=== PATIENT | female | born 1985 | race Caucasian/White ===

== ENCOUNTER 2024-12-19 21:38 | Inpatient (IN) | payer BC, SELFPAY ==
[2024-12-19 14:05] VITALS: BP 175/106
--- NOTE | 2024-12-19 14:41 | ED TECH ---
unable to draw labs in triage. stuck 2x.
--- NOTE | 2024-12-19 15:27 | ED.GENMED ---
History of Present Illness
General
Chief Complaint: Oral/Mouth Problem
Source: patient
Exam Limitations: none
Time Seen by Provider: 12/19/24 15:15
History of Present Illness
History of Present Illness:
See MDM
Past History
Past History
ED Past Medical History: None
ED Past Surgical History: Other (Root canal)
Phy Exam
Physical Exam
Physical Exam:
See MDM
Course
Orders/Labs/Results
Orders:
Orders
12/19/24 14:10
Test Result ONCE
12/19/24 15:25
CT Neck With Iv Contrast Urgent
Comment:
Reason For Exam: R facial and neck abscess
LevoFLOXacin 500 MG/100 ML [Levaquin] 500 mg in 100 ml IV NOW
Morphine Sulfate 4 mg IV NOW STA
12/19/24 15:28
Ketorolac [Toradol] 30 mg IV NOW STA
12/19/24 15:37
Complete Blood Count/With Diff Urgent
12/19/24 15:38
Wound Culture [Wound/Abscess/Other Culture] Urgent
JIHAN Source: Face
Specimen Description: Right
Date Specimen was Collected: 12/19/24
Time Specimen was Collected: 15:32
12/19/24 15:51
Lactic Acid Urgent
12/19/24 16:29
Comprehensive Metabolic Panel Urgent
Comment: HCG
HCG, Serum Qualitative Screen Urgent
12/19/24 16:39
Ondansetron Injectable [Zofran] 4 mg IV NOW STA
Abnormal Lab Results
12/19/24 12/19/24
15:37 16:29
WBC 14.7 H 10^3/uL
(4.8-10.8)
Abs Immat Gran (auto) 0.1 H 10^3/uL
(0-0.05)
Absolute Neuts (auto) 11.6 H 10^3/uL
(1.4-6.5)
Absolute Monos (auto) 1.1 H 10^3/uL
(0.1-0.6)
Neutrophils % 79.4 H %
(42.2-75.2)
Lymphocytes % 10.8 L %
(20.5-51.1)
BUN 2 L mg/dl
(7-17)
Creatinine 0.5 L mg/dL
(0.6-1.0)
Glucose 118 H mg/dl
(70-99)
Total Bilirubin 1.4 H mg/dl
(0.2-1.3)
AST 42 H U/L
(14-36)
ALT 46 H U/L
(0-35)
12/19/24 15:37
12/19/24 16:29
Vital Signs
Initial and Last Documented VS:
Initial Vital Signs
Temp Pulse Resp BP Pulse Ox
99.5 F 88 16 175/106 99
12/19/24 14:05 12/19/24 14:05 12/19/24 14:05 12/19/24 14:05 12/19/24 14:05
Last Documented Vital Signs
Temp Pulse Resp BP Pulse Ox
99.5 F 97 20 172/80 99
12/19/24 14:05 12/19/24 19:07 12/19/24 19:07 12/19/24 19:07 12/19/24 19:07
Procedures
Incision/Drainage/Joint Aspiration
Right Anterior Lateral Cheek:
Preparation: cleaned with alcohol wipe
Type of procedure: drain (with 18G needle)
Nature of site: abscess
Description of abscess: greater than 3cm
Loculations broken up: No
How much fluid was obtained?: small amount
Fluid description: purulent
Treatment: left open for drainage
MDM/Problems Addressed
Differential Diagnosis Includes:
HPI and MDM Narrative:
39-year-old female presenting with right facial swelling and redness. Patient states she feels like it is going to her throat and she is having trouble swallowing. She had a right lower root canal several years ago. Because it was in the same
area, she assumed it was related to the root canal. She saw her dentist and was placed on clindamycin. She followed up today and they were thinking about draining it but she was sent in for evaluation given the throat involvement. Patient does
feel double. There is cellulitic changes with abscess to the right lateral cheek. It is coming to ahead. Because of this, an 18-gauge needle was placed in the area to decompress. Purulent discharge was removed. It was sent for culture. Patient
started on IV clindamycin. Will obtain CT of
Physical exam
General: Mildly uncomfortable
HEENT: protecting airway
Neck: Swelling and erythema to right anterior lower jaw that comes to ahead
CV: No evidence of cyanosis
Resp: No accessory muscle use
Abd: Non-distended
Extremities: No deformities
Neuro: alert
Psych: Normal affect
Skin: Intact
Problems Addressed including Acute and Chronic Conditions affecting care:
1. Right facial abscess
Acuity: acute
Prognosis: unstable
Details: Medial incision was performed to decompress the area. Patient did feel better. Will start IV antibiotics and obtain CT
Updates
On multiple reassessments, patient feeling much better. CT confirms what appears to be a small abscess. It was likely larger but it was drained for patient's comfort prior to CT. Given swelling near the airway and her discomfort, will continue IV
antibiotics and
Differential Diagnosis (but not limited to): Dental abscess, facial abscess
Testing considered: Blood cultures
Drug therapy (if applicable): OTC meds, please see d/c instruction regarding Rx drugs
Amount and/or Complexity of Data Reviewed
Clinical info obtained from: Patient
External data reviewed: N/A
Labs I independently reviewed (but not limited to): Leukocytosis
Radiology: The CT scan was personally and independently reviewed. In addition, official CT report reviewed.
Pulse Ox: not hypoxic
EKG independently reviewed: N/A
Hoisting Engineer: N/A
Critical Care: N/A
Risk of Complication:
Social Determinants of health: Good social support
Discussed with other providers: Hospitalist
Escalation of Care includes Admit/Obs: Given the cellulitis and abscess failing outpatient antibiotics, will admit for IV antibiotics
Occasional wrong word or 'sound a like' substitutions may have occurred due to the inherent limitations of voice recognition software. Read the chart carefully and recognize, using context, where substitutions have occurred.
*Critical Care Note
Total Time (30-74mins, 75-104mins- exclusive of procedures): Not Applicable
ED Attending Note
-
Portions of this chart may have been created with voice recognition software.� Occasional wrong word or��sound alike� substitutions may have occurred due to the inherent limitations of voice recognition software.
Discharge Plan
Departure
Patient Disposition: Admit
Date of Disposition: 12/19/24
Time of Disposition: 20:01
Admit to: Med/Surg
Presentation/result/management discussed w/ accepting MD/DO: Hospitalist
Discharge Problem:
Abscess of face
Prescriptions:
No Action
clindamycin HCl 300 mg Capsule
300 mg PO TID
cetirizine 10 mg Tablet
10 mg PO DAILY
zinc sulfate 50 mg zinc (220 mg) Tablet
50 mg PO HS
famotidine 20 mg Tablet
20 mg PO DAILY
ascorbic acid (vitamin C) [Vitamin C] 500 mg Tablet
500 mg PO HS
ibuprofen [Advil] 200 mg Tablet
600 mg PO Q6HPRN PRN (Reason: mild pain/fever)
duloxetine 60 mg Capsule,Delayed Release(Dr/Ec)
60 mg PO DAILY
cholecalciferol (vitamin D3) [Vitamin D3] 25 mcg (1,000 unit) Tablet
25 mcg PO HS
Visbiome 112.5 billion cell Capsule
1 cap PO HS
Fiber Gummies 2 gram Tablet,Chewable
4 g PO HS
magnesium oxide 400 mg magnesium Tablet
400 mg PO HS
Referrals:
Aicha Guzman DO [Family Provider] -
Interventions
Interventions:
*Risk Screen - Suicide Last Done: 12/19/24 14:05
*General Assessment Last Done: 12/19/24 15:02
*Neglect/Abuse Screening Last Done: 12/19/24 14:05
Discharge Date and Time
Print Language: SAMI
[2024-12-19] MEDS: LEVAQUIN 100 IV (15:36)
[2024-12-19] MEDS: TORADOL 30 MG IV (15:36)
[2024-12-19] MEDS: MORPHINE SULFATE 4 MG IV ×2 (15:37→20:35)
[2024-12-19 16:11] LABS: % Basophils 0.5 % (0-2); % Eosinophils 1.4 % (0-6); % Immature Granulocytes 0.3 % (0-0.5); % Lymphocytes 10.8 % (20.5-51.1); % Monocytes 7.6 % (1.7-9.3); % Neutrophils 79.4 % (42.2-75.2); Absolute Basophils 0.1 10^3/uL (0-0.2); Absolute Eosinophils 0.2 10^3/uL (0-0.7); Absolute Immature Granulocytes 0.1 10^3/uL (0-0.05); Absolute Lymphocytes 1.6 10^3/uL (1.2-3.4); Absolute Monocytes 1.1 10^3/uL (0.1-0.6); Absolute Neutrophils 11.6 10^3/uL (1.4-6.5); Hematocrit 38.6 % (37.0-47.0); Hemoglobin 13.1 g/dL (12.0-16.0); Mean Corp Hgb Conc. 33.9 g/dL (33.0-37.0); Mean Corpuscular Hgb 30.6 pg (27.0-31.0); Mean Corpuscular Volume 90.2 fL (81.0-99.0); Nucleated Red Blood Cells % 0 %; Red Blood Cell Count 4.28 10^6/uL (4.20-5.40); Red Cell Dist. Width 13.1 % (11.5-14.5); White Blood Cell Count 14.7 10^3/uL (4.8-10.8)
[2024-12-19 16:19] LABS: Lactic Acid 1.1 mmol/L (0.7-2.0)
[2024-12-19] MEDS: ZOFRAN 4 MG IV (16:49)
[2024-12-19 17:16] LABS: ALT (SGPT) 46 U/L (0-35); AST (SGOT) 42 U/L (14-36); Albumin 3.8 g/dl (3.5-5.0); Alkaline Phosphatase 85 U/L (38-126); Blood Urea Nitrogen 2 mg/dl (7-17); Calcium 9.3 mg/dl (8.4-10.2); Carbon Dioxide 23 mmol/L (22-30); Chloride 105 mmol/L (98-107); Glucose 118 mg/dl (70-99); Potassium 4.6 mmol/L (3.5-5.1); Sodium 137 mmol/L (135-145); Total Bilirubin 1.4 mg/dl (0.2-1.3); Total Protein 6.9 g/dl (6.3-8.2); eGFR > 60.00
[2024-12-19 17:17] LABS: HCG, Serum Qualitative Screen Negative
[2024-12-19 19:07] VITALS: BP 172/80
--- NOTE | 2024-12-19 20:39 | HPS.HSE ---
Family Physician
-
Family Physician: Aicha Guzman
Chief Complaint
-
facial abscess
History of Present Illness
Patient is a 39-year-old female with past medical history significant for seasonal allergies, anxiety and GERD who presented to [facility] ED for evaluation of facial abscess. Patient states she went to dentist on Sunday to get dental work
completed and they were unable related to a abscess on the lower right side of her mouth. They sent her home with a script for Clindamycin TID for 7 days, she has taken medication as prescribed. She notes increased size and pain around Sunday and
called. Dentist instructed her to continue antibiotic and it will improve. The abscess continued to grow and now able to visualize externally radiating down neck, she returned to dentist today who immediately referred her to the ED for evaluation
and treatment. She reports difficulty swallowing with increased swelling and discomfort. Patient denies any fever, chills, cough, shortness of breath, nausea or vomiting.
Medical History
Past Medical History
Past Medical History: Reports Other
Additional Past Medical History:
seasonal allergies
anxiety
GERD
Past Surgical History: Reports Other
Additional Past Surgical History:
Left knee scope partial medial meniscectomy and excision of medial plica (DOS 03/13/2019)
2 c-sections
Social History
Tobacco: Non-smoker
Alcohol: Occasional
Drug: Marijuana (occasionally will smoke marijuana )
Personal:
Living: With Family
Employment: Employed
Family History
Family History: Not pertinent
Allergies / Home Medications
Allergies reflects when Allergies were last updated in [employer].
Home Medications with original date entered in [employer]
Allergy/Medication List:
Allergies
Allergy/AdvReac Type Severity Reaction Status Date / Time
coconut Allergy Rash Verified 12/19/24 14:05
dairy Allergy upset Uncoded 12/19/24 14:05
stomach
Home Medications
Lactobac no.2-Bifidobac no.1-S. thermo 112.5 billion cell capsule (Visbiome) 1 cap PO HS 12/19/24
ascorbic acid (vitamin C) 500 mg tablet (Vitamin C) 500 mg PO HS 12/19/24
cetirizine 10 mg tablet 10 mg PO DAILY 12/19/24
cholecalciferol (vitamin D3) 25 mcg (1,000 unit) tablet (Vitamin D3) 25 mcg PO HS 12/19/24
clindamycin HCl 300 mg capsule 300 mg PO TID 12/19/24
duloxetine 60 mg capsule,delayed release 60 mg PO DAILY 12/19/24
famotidine 20 mg tablet 20 mg PO DAILY 12/19/24
ibuprofen 200 mg tablet (Advil) 600 mg PO Q6HPRN PRN mild pain/fever 12/19/24
inulin 2 gram chewable tablet 4 g PO HS 12/19/24
magnesium oxide 400 mg PO HS 12/19/24
zinc sulfate 50 mg zinc (220 mg) tablet 50 mg PO HS 12/19/24
Review of Systems
-
History Source: Patient
EENT: Reports Mouth Pain (left lower abscess with edema and discomfort )
Physical Exam
Vital Signs
Vital Signs
Temp Pulse Resp BP Pulse Ox
99.5 F 97 20 172/80 99
12/19/24 14:05 12/19/24 19:07 12/19/24 19:07 12/19/24 19:07 12/19/24 19:07
Physical Exam
General: Well Developed, Well Nourished, No Apparent Distress, Conversant and Morbidly Obese
HEENT: NormoCephalic, Moist mucous membranes, Atraumatic, [place] Conjunctivae, Nose Appears Normal, Ears Appear Normal and Other (Swelling and erythema to right anterior lower jaw )
Respiratory: Clear and Non Labored Respirations
Cardiac: S1/S2 and Regular Rhythm
Breast: Deferred by me
GI: Soft, Non Tender, Non Distended and Normal Bowel Sounds; No Organomegaly
Rectal: Deferred by Provider
Genito-urinary: Deferred by me
Musculoskeletal: No Clubbing, No Cyanosis and No Edema
Skin: No Rash
Neuro: Awake, Alert, AO x 3 and Nonfocal/grossly intact
Psych: Calm and Intact Judgment/Insight
Laboratory Results
-
12/19/24 15:37
12/19/24 16:29
Laboratory Results
Lactic Acid Cancelled 12/19/24 18:15
Total Bilirubin 1.4 mg/dl (0.2-1.3) H 12/19/24 16:29
AST 42 U/L (14-36) H 12/19/24 16:29
ALT 46 U/L (0-35) H 12/19/24 16:29
Alkaline Phosphatase 85 U/L (38-126) 12/19/24 16:29
Data Reviewed
-
CT Scan: Report Reviewed by me (Neck: Findings suggesting a small abscess in the subcutaneous tissues about the right jaw as described above. Associated mild surrounding inflammation and cellulitis as described above. Mild right cervical and
submental lymphadenopathy. Minimal nonacute sinusitis. Mild reversal of the normal cerv)
Lab Data: Labs Reviewed by me (WBC 14.7, neut 79.4)
Impression/Plan
-
IMPRESSION/PLAN:
#facial abscess
WBC 14.7, Neut 79.[address]: Findings suggesting a small abscess in the subcutaneous tissues about the right jaw as described above. Associated mild surrounding inflammation and cellulitis as described above.
Mild right cervical and submental lymphadenopathy.
Minimal nonacute sinusitis.
Mild reversal of the normal cervical spinal lordosis. This can be seen with muscular spasm.
- Admit to med/surg
- IV Unasyn
- Consult oral/maxillofacial surgery
- IVF
- supportive care
#seasonal allergies
- continue cetirizine
#anxiety
- continue Cymbalta
#GERD
- continue famotidine
Code status: full code
DVT prophylaxis: Lovenox Sq
--- NOTE | 2024-12-19 21:10 | W.PN.UPDATE ---
Update Note
Progress Note Update
This note serves as an addendum to the H&P by ground control approach technician LAURA Lena Man
HPI
39 HX Anxiety, seasonal allergy serge t ER
- pw right facial swelling and redness with radiation into throat
- trouble swallowing.
- s/p right lower root canal several years ago. it was in the same area, she assumed it was related to the root canal.
- Dentist prescribed current clindamycin D4/5
- Upon f/u with Dentist today , she was sent to ER for evaluation given the throat involvement.
Vital Signs
Temp Pulse Resp BP Pulse Ox
99.5 F 97 20 172/80 99
12/19/24 14:05 12/19/24 19:07 12/19/24 19:07 12/19/24 19:07 12/19/24 19:07
PE
Gen:uncomfortable
HEENT and neck: Swelling and erythema to right anterior lower jaw
Lungs:CTA
Cor: RRR S1 S2
Abdomen: benign exam
RESIN MAKER: AAO3, NFND
MS:no edema
Psych:approiate
Abnormal Lab
12/19/24 12/19/24
15:37 16:29
WBC 14.7 H
Abs Immat Gran (auto) 0.1 H
Absolute Neuts (auto) 11.6 H
Absolute Monos (auto) 1.1 H
Neutrophils % 79.4 H
Lymphocytes % 10.8 L
BUN 2 L
Creatinine 0.5 L
Glucose 118 H
Total Bilirubin 1.4 H
AST 42 H
ALT [address] With Iv Contrast
- small abscess in the subcutaneous tissues about the right jaw as described above.
- associated mild surrounding inflammation and cellulitis as described above.
- Mild right cervical and submental lymphadenopathy.
- Minimal nonacute sinusitis.
- Mild reversal of the normal cervical spinal lordosis. This can be seen with muscular spasm.
ASSESSMENT & PLAN
Small subcutaneous abscess at Rt mandibular area of the face suspect underling dental infection
- associated mild surrounding inflammation and cellulitis
- Mild right cervical and submental LAD
- Empiric IV Unasyn in place of IV LVQ
- IV NS
- PRN Toradol analgesia
- OMFS consult
HX depression
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
DVT Px: LMWH
Full code
IP MS
[2024-12-19 22:18] VITALS: BMI 45.6
--- NOTE | 2024-12-19 23:00 | PTCARENOTE ---
Pt. admitted from E.D., AAO x 3, vs stable, right jaw +2 edema, red, call lacey within reach.
[2024-12-19] MEDS: NSS 1000 IV (23:03)
[2024-12-19 23:11] VITALS: BP 116/64
[2024-12-20] MEDS: UNASYN IV ×4 (00:03→16:14)
[2024-12-20 07:02] LABS: Blood Urea Nitrogen 4 mg/dl (7-17); Calcium 8.8 mg/dl (8.4-10.2); Carbon Dioxide 26 mmol/L (22-30); Chloride 107 mmol/L (98-107); Estimated Creatinine Clearance > 125 ml/min; Glucose 109 mg/dl (70-99); Potassium 4.1 mmol/L (3.5-5.1); Sodium 140 mmol/L (135-145); eGFR > 60.00
[2024-12-20 07:30] VITALS: BP 136/81
[2024-12-20 08:08] LABS: Hematocrit 34.7 % (37.0-47.0); Hemoglobin 11.7 g/dL (12.0-16.0); Mean Corp Hgb Conc. 33.7 g/dL (33.0-37.0); Mean Corpuscular Hgb 30.7 pg (27.0-31.0); Mean Corpuscular Volume 91.1 fL (81.0-99.0); Platelet Count 274 10^3/uL (130-400); Red Blood Cell Count 3.81 10^6/uL (4.20-5.40); Red Cell Dist. Width 13.2 % (11.5-14.5); White Blood Cell Count 8.3 10^3/uL (4.8-10.8)
[2024-12-20] MEDS: PEPCID 20 MG PO (08:19)
[2024-12-20] MEDS: ZYRTEC 10 MG PO (08:19)
[2024-12-20] MEDS: CYMBALTA DELAYED RELEASE 60 MG PO (08:19)
[2024-12-20] MEDS: NSS 1000 IV (10:46)
--- NOTE | 2024-12-20 11:21 | W.PN.HOSP.TC ---
Today's Communication/Plan
-
Continue with IV fluids and continue with IV Unasyn exam monitor for drainage
Trend CBC
Monitor fever curve
Await surgery eval
Assessment / Plan
Assessment / Plan
ASSESSMENT & PLAN
Small subcutaneous abscess at Rt mandibular area of the face suspect 2/2 ? dental infection
- associated mild surrounding inflammation and cellulitis
- Mild right cervical and submental LAD
- Empiric IV Unasyn in place of IV LVQ.
- IV NS for now.
- PRN Toradol analgesia
- OMFS consult
HX depression
- c/w ORTHOPEDIC DENTIST Duloxetine
Morbid obesity due to excess calories
-affects all aspects of medical care.
DVT Px: LMWH
Full code
Anticipated Discharge: 24 - 48 hours
Subjective/Interval History
-
Date of Service: December 20, 2024
states of improvement in R JAW swelling from yesterday
having drainage from open wound on R lower jaw
midl serosanguineous drainage
Objective Data
-
Labs:
Laboratory Results
12/20/24
05:32
WBC 8.3
Hgb 11.7 L
Hct 34.7 L
Plt Count 274
Sodium 140
Potassium 4.1
Chloride 107
Carbon Dioxide 26
BUN 4 L
Creatinine 0.6
Glucose 109 H
Calcium 8.8
Vital Signs:
Vital Signs
Temp Pulse Resp BP Pulse Ox
98.2 F 82 16 136/81 98
12/20/24 07:30 12/20/24 07:30 12/20/24 07:30 12/20/24 07:30 12/20/24 07:30
I&O
12/19/24 12/20/24 12/21/24
06:59 06:59 06:59
Intake Total 1320 / 1320
Balance 1320 / 1320
Physical Exam
-
General: Well Developed, No Apparent Distress and Morbidly Obese
HEENT: Normocephalic, Atraumatic, Moist Mucous Membranes, Nose Appears Normal, Ears Appear Normal, Neck Non Tender and Other (R lower jaw w/mild serosanginous drainage. Mild erythema noted around open wound. )
Respiratory: Clear to Auscultation
Cardiac: Regular Rhythm and S1/S2; Negative Murmur, Rub or Gallop
GI: Soft, Nontender, Nondistended and Normal Bowel Sounds; Negative Organomegaly
Rectal: Deferred by Provider
Musculoskeletal: No Clubbing, No Cyanosis and No Edema
Skin: Negative Rash
Neuro: Awake, AO x 3, No Motor Deficits and Nonfocal/Grossly Intact
Psych: Calm
[2024-12-20 15:00] VITALS: BP 149/78
--- NOTE | 2024-12-20 15:30 | CM ---
public events facilities rental manager reviewed patient's chart and met with patient and patient lives with her spouse and children in a 2 story home, patient is independent with adl's and ambulation, no dme, patient drives, home when stable.
PCP: Aicha Guzman
Pharmacy: [facility] in [place]
Plan; Home when stable.
--- NOTE | 2024-12-20 15:38 | W.PN.GENERIC ---
Assessment / Plan
-
Cutaneous/Subcutaneous infection. Not odontogenic. Recommend adjusting antibiotic therapy to include MRSA coverage. Patient can follow up as an outpatient for evaluation of teeth requiring infection.
Physician Progress Note
Subjective
Patient presents with pain and swelling of the left neck. Reports increasing swelling without any odontogenic pain.
Objective
Vital Signs
Temp Pulse Resp BP Pulse Ox
98.2 F 82 16 136/81 98
12/20/24 07:30 12/20/24 07:30 12/20/24 07:30 12/20/24 07:30 12/20/24 07:30
Lab Results
12/20/24 05:32
12/20/24 05:32
Right neck swelling with purulence drainage. Carious teeth without vestibular fullness. Swelling is limited the the subcutaneous tissues without oral involvement.
--- NOTE | 2024-12-20 15:46 | PHA.VAN.IN ---
Assessment
- Assessment
Renal Function: Appears similar to baseline
Concomitant Antimicrobials: ampicillin/sulbactam
AUC Dosing Plan
- Dosing Variables
Dosing Weight (kg): 136
Dosing CrCl (ml/min): 125
Vd coefficient (L/kg): 0.5
- Empiric Dosing
Initial / Loading Dose: 2000mg - administration pending
Maintenance Regimen: Vanc 1750mg Q12H starting 12/21 599
Estimated AUC (mcg*h/mL): 528
Estimated Peak (mcg*h/mL): 35.4
Estimated Trough (mcg/ml): 12
Estimated Half Life (H): 6.4
- Monitoring
No levels ordered at this time: consider levels in next few days
Pharmacokinetics Vancomycin I
- -
Patient Age: 39
Patient Sex: Female
Vancomycin Day #: 1
Indication: Pulmonary/Respiratory
Requesting Provider: Dr. Carr
Pertinent Antimicrobial Allergies:
no pertinent antibiotic allergies
Height / Weight:
Height 5 ft 8 in
Actual Weight 135.942 kg
Pertinent Past Medical History: BMI ~45.6
- Vital Signs / Lab Results
Temp Pulse Resp BP Pulse Ox
98.2 F 82 16 136/81 98
12/20/24 07:30 12/20/24 07:30 12/20/24 07:30 12/20/24 07:30 12/20/24 07:30
Lab Results - Hematology
12/19/24 12/20/24
15:37 05:32
WBC 14.7 H 8.3
Lab Results - Chemistry
12/19/24 12/19/24 12/20/24
15:37 16:29 05:32
BUN Cancelled 2 L 4 L
Creatinine Cancelled 0.5 L 0.6
Estimated Creat Clear Cancelled > 125
Albumin Cancelled 3.8
12/19/24 12/19/24 12/19/24
14:15 15:51 18:15
Lactic Acid Cancelled 1.1 Cancelled
Microbiology Results
12/19/24 15:38 Wound Culture - Preliminary
Face - Right Gram Stain - Preliminary
[2024-12-20] MEDS: LOVENOX 40 MG SC (16:15)
[2024-12-20] MEDS: VANCOCIN 540 MG IV (17:36)
[2024-12-20 23:23] VITALS: BP 124/68
[2024-12-21] MEDS: UNASYN IV ×4 (05:04→23:04)
[2024-12-21] MEDS: VANCOCIN 535 MG IV (05:05)
[2024-12-21 07:00] VITALS: BP 131/76
[2024-12-21 08:18] LABS: % Immature Granulocytes 0.5 % (0-0.5); % Lymphocytes 20.5 % (20.5-51.1); % Monocytes 7.8 % (1.7-9.3); % Neutrophils 65.2 % (42.2-75.2); Absolute Basophils 0.1 10^3/uL (0-0.2); Absolute Eosinophils 0.3 10^3/uL (0-0.7); Absolute Lymphocytes 1.3 10^3/uL (1.2-3.4); Absolute Monocytes 0.5 10^3/uL (0.1-0.6); Hematocrit 34.7 % (37.0-47.0); Hemoglobin 11.5 g/dL (12.0-16.0); Mean Corp Hgb Conc. 33.1 g/dL (33.0-37.0); Mean Corpuscular Hgb 30.6 pg (27.0-31.0); Mean Corpuscular Volume 92.3 fL (81.0-99.0); Mean Platelet Volume 9.9 fL (7.4-10.4); Nucleated Red Blood Cells % 0 %; Platelet Count 293 10^3/uL (130-400); Red Blood Cell Count 3.76 10^6/uL (4.20-5.40); Red Cell Dist. Width 13.2 % (11.5-14.5); White Blood Cell Count 6.2 10^3/uL (4.8-10.8)
[2024-12-21 08:53] LABS: ALT (SGPT) 39 U/L (0-35); AST (SGOT) 26 U/L (14-36); Albumin 3.3 g/dl (3.5-5.0); Alkaline Phosphatase 85 U/L (38-126); Blood Urea Nitrogen 6 mg/dl (7-17); Calcium 8.8 mg/dl (8.4-10.2); Carbon Dioxide 25 mmol/L (22-30); Chloride 109 mmol/L (98-107); Estimated Creatinine Clearance > 125 ml/min; Glucose 116 mg/dl (70-99); Potassium 4.3 mmol/L (3.5-5.1); Sodium 140 mmol/L (135-145); Total Bilirubin 0.9 mg/dl (0.2-1.3); Total Protein 5.9 g/dl (6.3-8.2); eGFR > 60.00
--- NOTE | 2024-12-21 09:49 | PHA.VAN.FU ---
Vancomycin Assessment / Plan
- Assessment
Renal Function: Stable
WBC's are: Trending Down
In the past 24 hrs, patient has been: Afebrile
Concomitant Antimicrobials: Ampicillin-sulbactam
- Dosing Plan
Continue: Vanc 1750mg IV Q12H
- Monitoring Plan
No level(s) ordered at this time: Order levels after 12/22 1800 dose.
- Follow Up
Pharmacy will continue to follow.
Vancomycin Follow UP
- -
Patient Age: 39
Patient Sex: Female
Vancomycin Day #: 2
Indication: Pulmonary/Respiratory
Requesting Provider: Dr. Carr
Pertinent Antimicrobial Allergies:
no pertinent antibiotic allergies
Height / Weight:
Height 5 ft 8 in
Actual Weight 135.942 kg
Pertinent Past Medical History: BMI ~45.6
- Vital Signs / Lab Results
Temp Pulse Resp BP Pulse Ox
98.5 F 74 20 131/76 97
12/21/24 07:00 12/21/24 07:00 12/21/24 07:00 12/21/24 07:00 12/21/24 07:00
Lab Results - Hematology
12/19/24 12/20/24 12/21/24
15:37 05:32 07:54
WBC 14.7 H 8.3 6.2
Lab Results - Chemistry
12/19/24 12/19/24 12/20/24
15:37 16:29 05:32
BUN Cancelled 2 L 4 L
Creatinine Cancelled 0.5 L 0.6
Estimated Creat Clear Cancelled > 125
Albumin Cancelled 3.8
12/21/24
07:54
BUN 6 L
Creatinine 0.6
Estimated Creat Clear > 125
Albumin 3.3 L
12/19/24 12/19/24 12/19/24
14:15 15:51 18:15
Lactic Acid Cancelled 1.1 Cancelled
Microbiology Results
12/20/24 00:16 MRSA Screen - Final
Nose No Methicillin Resistant Staphylococcus aureus isolated.
12/19/24 15:38 Wound Culture - Preliminary
Face - Right Gram Stain - Preliminary
[2024-12-21] MEDS: NSS IV ×2 (10:01)
[2024-12-21] MEDS: CYMBALTA DELAYED RELEASE 60 MG PO (10:01)
[2024-12-21] MEDS: PEPCID 20 MG PO (10:02)
[2024-12-21] MEDS: ZYRTEC 10 MG PO (10:02)
--- NOTE | 2024-12-21 10:16 | W.PN.HOSP.TC ---
Today's Communication/Plan
-
warm compresses
IV abx
ID input
DC IVF
pain control
Assessment / Plan
Assessment / Plan
ASSESSMENT & PLAN
R lower jaw facial cellulitis w/subcutaneous abscess
- associated mild surrounding inflammation and cellulitis
- Mild right cervical and submental LAD
- DC IV unasyn
- CT scan noted.
- Continue w/ IV vancomycin as w/abscess.
- PRN Toradol analgesia
- OMFS consult -not odontogenic
- warm compresses BID
- Will ask ID input
HX depression
- c/w SPONGE BUFFER Duloxetine
Morbid obesity due to excess calories
-affects all aspects of medical care.
DVT Px: LMWH
Full code
Anticipated Discharge: 24 - 48 hours
Subjective/Interval History
-
Date of Service: December 21, 2024
states of decrease in drainage
improvement in swelling
Objective Data
-
Labs:
Laboratory Results
12/21/24
07:54
WBC 6.2
Hgb 11.5 L
Hct 34.7 L
Plt Count 293
Sodium 140
Potassium 4.3
Chloride 109 H
Carbon Dioxide 25
BUN 6 L
Creatinine 0.6
Glucose 116 H
Calcium 8.8
Total Bilirubin 0.9
AST 26
ALT 39 H
Alkaline Phosphatase 85
Vital Signs:
Vital Signs
Temp Pulse Resp BP Pulse Ox
98.5 F 74 20 131/76 97
12/21/24 07:00 12/21/24 07:00 12/21/24 07:00 12/21/24 07:00 12/21/24 07:00
I&O
12/20/24 12/21/24 12/22/24
06:59 06:59 06:59
Intake Total 1320 / 1320 0 / 4109
Balance 1320 / 1320 0 / 4109
Physical Exam
-
General: Well Developed, No Apparent Distress and Morbidly Obese
HEENT: Normocephalic, Atraumatic, Moist Mucous Membranes, Nose Appears Normal, Ears Appear Normal, Neck Non Tender and Other (R lowe jaw region with close scab wound w/erythema. No drainage. )
Respiratory: Clear to Auscultation
Cardiac: Regular Rhythm and S1/S2; Negative Murmur, Rub or Gallop
GI: Soft, Nontender, Nondistended and Normal Bowel Sounds; Negative Organomegaly
Rectal: Deferred by Provider
Musculoskeletal: No Clubbing, No Cyanosis and No Edema
Skin: Negative Rash
Neuro: Awake, AO x 3, No Motor Deficits and Nonfocal/Grossly Intact
Psych: Calm
--- NOTE | 2024-12-21 14:25 | CON.ID ---
Consultation
-
Date/Time Consultation Requested: December 21, 2024 1023
Date/Time Consultation Performed: December 21, 2024 1425
Requesting Provider: Dr. Delon Carr
Performing Provider: Dr. Maddison Childers
Reason for Consultation: Facial cellulitis
Chief Complaint / Past History
Chief Complaint
Facial abscess
History of Present Illness
39-year-old female without significant past medical history who presented to the hospital on December 19 due to significant left jaw, swelling pain, and redness. Patient reports she noted swelling and discomfort on her right lower jaw on Sunday. She
thought perhaps it was stemming from prior root canal. She saw her dentist who prescribed clindamycin x 7 days. However the lump continued to enlarge. On Sunday she noted the abscess on the outside of her right jaw. Her face was very swollen.
She had difficulty swallowing. She went to another dentist who sent her to the ER. CT of the neck showed small abscess in the subcutaneous in the right jaw. ED lanced the abscess. She was placed on Unasyn. The Gram stain showed moderate
gram-negative ynes, culture appears to be respiratory yossi. Patient reports since drainage of the abscess, the facial swelling has significantly improved. She continues to have induration in that area. She was seen by oral maxillary surgeon who
deemed abscess is not related to dental. The Unasyn was changed to vancomycin today. Patient denies fevers or chills. No history of MRSA in the past. She has not shaved her face for long time.
Past History
Additional Past Medical History:
Anxiety
Seasonal allergies
Class III obesity BMI 46
Additional Past Surgical History:
Left knee meniscus repair
Allergy History:
coconut Allergy (Verified 12/19/24 14:05)
Rash
Milk Containing Products (Dairy) Allergy (Verified 12/19/24 22:20)
UPSET STOMACH
Medications Reviewed: Yes
Current Antibiotics:
s/p Unasyn x 2d
Vancomycin d1
Social History
Tobacco: Non-Smoker
Alcohol: Occasional
Drug: Marijuana (Occasional)
Personal:
Living: With Family
Employment: Employed (Retail business)
Family History
Family History: Not Pertinent
Review of Systems
Review of Systems
General: Chills; Negative Fever or Change in Appetite
Cardiovascular: Negative Chest Pain or Edema
Respiratory: Negative Dyspnea or Cough
Gasteroenterology: Negative Nausea, Vomiting or Diarrhea
Genital / Urological: Negative Dysuria or Flank Pain
Endocrine: Negative Weakness
All systems: All other systems were reviewed and were negative
Vital Signs
Temp Pulse Resp BP Pulse Ox
98.5 F 74 20 131/76 98
12/21/24 07:00 12/21/24 07:00 12/21/24 07:00 12/21/24 07:00 12/21/24 08:33
Physical Exam
Physical Exam
Constitutional: No Acute Distress and Comfortable
Head: Other (Right mandible with large area of firm induration extending to submandible with mild erythema, drained abscess is dry.)
Eyes: Sclera Anicteric
Cardiovascular: Regular Rate and S1/S2
Pulmonary: Clear
Gastrointestinal: Soft, Non Tender, Non Distended and Normal Bowel Sounds
Genito-Urinary: Negative CVA Tenderness
Extremities: Negative Edema
Neurological: AO x 3
Lab / Diagnostic Study Results
12/21/24 07:54
12/21/24 07:54
Abs Immat Gran (auto) 0.0 10^3/uL (0-0.05) 12/21/24 07:54
Absolute Neuts (auto) 4.0 10^3/uL (1.4-6.5) 12/21/24 07:54
Absolute Lymphs (auto) 1.3 10^3/uL (1.2-3.4) 12/21/24 07:54
Absolute Monos (auto) 0.5 10^3/uL (0.1-0.6) 12/21/24 07:54
Absolute Basos (auto) 0.1 10^3/uL (0-0.2) 12/21/24 07:54
Immature Gran % 0.5 % (0-0.5) 12/21/24 07:54
Neutrophils % 65.2 % (42.2-75.2) 12/21/24 07:54
Lymphocytes % 20.5 % (20.5-51.1) 12/21/24 07:54
Monocytes % 7.8 % (1.7-9.3) 12/21/24 07:54
Eosinophils % 5.0 % (0-6) 12/21/24 07:54
Basophils % 1.0 % (0-2) 12/21/24 07:54
Lactic Acid Cancelled 12/19/24 18:15
Microbiology Results
Micro:
12/19/24 15:38 Wound Culture - Final
Face - Right Gram Stain - Final
12/20/24 00:16 MRSA Screen - Final
Nose No Methicillin Resistant Staphylococcus aureus isolated.
12/19/24 CT neck: Findings suggesting a small abscess in the subcutaneous tissues about the right jaw as described above. Associated mild surrounding inflammation and cellulitis as described above. Mild right cervical and submental lymphadenopathy.
Assessment / Plan
# Right lower facial abscess with cellulitis
-Status post drainage in the ER
Gram stain moderate gram-negative rods, culture few mixed organisms resembling usual respiratory yossi
-MRSA screen negative.
-DC vancomycin
-Resume Unasyn.
-At time of discharge, transition to Augmentin 875 mg p.o. twice daily x 10 days.
-Apply warm compress.
[2024-12-21 15:00] VITALS: BP 147/90
[2024-12-21] MEDS: LOVENOX 40 MG SC (17:39)
[2024-12-21 23:00] VITALS: BP 126/77
[2024-12-22] MEDS: UNASYN IV ×2 (06:00→11:54)
[2024-12-22 07:23] VITALS: BP 147/73
[2024-12-22 07:35] LABS: % Basophils 1.1 % (0-2); % Eosinophils 5.4 % (0-6); % Immature Granulocytes 0.2 % (0-0.5); % Lymphocytes 22.1 % (20.5-51.1); % Monocytes 6.5 % (1.7-9.3); % Neutrophils 64.7 % (42.2-75.2); Absolute Basophils 0.1 10^3/uL (0-0.2); Absolute Eosinophils 0.4 10^3/uL (0-0.7); Absolute Lymphocytes 1.4 10^3/uL (1.2-3.4); Absolute Monocytes 0.4 10^3/uL (0.1-0.6); Absolute Neutrophils 4.2 10^3/uL (1.4-6.5); Hematocrit 33.9 % (37.0-47.0); Hemoglobin 11.4 g/dL (12.0-16.0); Mean Corp Hgb Conc. 33.6 g/dL (33.0-37.0); Mean Corpuscular Hgb 31.1 pg (27.0-31.0); Mean Corpuscular Volume 92.4 fL (81.0-99.0); Mean Platelet Volume 10.3 fL (7.4-10.4); Nucleated Red Blood Cells % 0 %; Platelet Count 267 10^3/uL (130-400); Red Blood Cell Count 3.67 10^6/uL (4.20-5.40); Red Cell Dist. Width 13.1 % (11.5-14.5); White Blood Cell Count 6.5 10^3/uL (4.8-10.8)
[2024-12-22] MEDS: ZYRTEC 10 MG PO (08:07)
[2024-12-22] MEDS: PEPCID 20 MG PO (08:07)
[2024-12-22] MEDS: CYMBALTA DELAYED RELEASE 60 MG PO (08:07)
[2024-12-22 08:39] LABS: ALT (SGPT) 39 U/L (0-35); AST (SGOT) 25 U/L (14-36); Albumin 3.4 g/dl (3.5-5.0); Alkaline Phosphatase 82 U/L (38-126); Blood Urea Nitrogen 7 mg/dl (7-17); Calcium 8.8 mg/dl (8.4-10.2); Carbon Dioxide 23 mmol/L (22-30); Chloride 108 mmol/L (98-107); Estimated Creatinine Clearance > 125 ml/min; Glucose 105 mg/dl (70-99); Potassium 4.3 mmol/L (3.5-5.1); Sodium 139 mmol/L (135-145); Total Bilirubin 0.7 mg/dl (0.2-1.3); Total Protein 6.1 g/dl (6.3-8.2); eGFR > 60.00
--- NOTE | 2024-12-22 10:55 | W.PN.ID1 ---
Date of Service
Date of Service: December 22, 2024
Today's Communication
After noon dose of Unasyn, can dc home on Augmentin 875 mg p.o. twice daily x 10 more days.
Assessment / Plan
# Right lower facial abscess with cellulitis
-Status post drainage in the ER
Gram stain moderate gram-negative rods, culture few mixed organisms resembling usual respiratory yossi
-MRSA screen negative.
-After noon dose of Unasyn, can dc home on Augmentin 875 mg p.o. twice daily x 10 more days.
-Continue warm compress.
Chief Complaint
-: Other (Facial abscess)
Subjective / Review of Systems
Face continues to feel improved.
Vital Signs / Physical Exam
Vital Signs
Vital Signs
Temp Pulse Resp BP Pulse Ox
99.3 F 72 18 147/73 99
12/22/24 07:23 12/22/24 07:23 12/22/24 07:23 12/22/24 07:23 12/22/24 07:23
Physical Exam
Constitutional: No Acute Distress and Comfortable
Head: Other (right mandible induration decreased)
Eyes: No Conjunctival Hemorrhage and Sclera Anicteric
Pulmonary: Clear
Gastrointestinal: Soft, Non Tender, Non Distended and Normal Bowel Sounds
Neurological: Awake and AO x 3
Objective Data
Lab Data
Lab Results
12/22/24 06:41
12/22/24 06:41
Estimated Creat Clear > 125 ml/min 12/22/24 06:41
Lactic Acid Cancelled 12/19/24 18:15
Total Bilirubin 0.7 mg/dl (0.2-1.3) 12/22/24 06:41
AST 25 U/L (14-36) 12/22/24 06:41
ALT 39 U/L (0-35) H 12/22/24 06:41
Alkaline Phosphatase 82 U/L (38-126) 12/22/24 06:41
Most recent labs reviewed.
Micro Results:
12/19/24 15:38 Wound Culture - Final
Face - Right Gram Stain - Final
12/20/24 00:16 MRSA Screen - Final
Nose No Methicillin Resistant Staphylococcus aureus isolated.
12/19/24 CT neck: Findings suggesting a small abscess in the subcutaneous tissues about the right jaw as described above. Associated mild surrounding inflammation and cellulitis as described above. Mild right cervical and submental lymphadenopathy.
Care Review
Plan reviewed with: Physician (Dr. Beasley)
--- NOTE | 2024-12-22 12:03 | W.PN.HOSP.TC ---
Today's Communication/Plan
-
Transition to Augmentin for 10 more days of antibiotic
Follow-up with PCP
Assessment / Plan
Assessment / Plan
#R lower jaw facial cellulitis w/subcutaneous abscess
- associated mild surrounding inflammation and cellulitis
- Mild right cervical and submental LAD, CT scan reviewed
- Evaluated by ID who recommended Unasyn with transition to Augmentin for 14-day course
- Last dose unasyn today at noon
- Clinically improved on Abx, no fever or leukocytosis
#HX depression
- c/w [employer]CREWD[employer] Duloxetine
#Morbid obesity due to excess calories
-affects all aspects of medical care.
-Encourage 30 minutes of aerobic exercise daily as tolerated
DVT Px: LMWH
Full code
Anticipated Discharge: Today
Subjective/Interval History
-
Date of Service: December 22, 2024
Seen and examined at the bedside. No acute events reported overnight. AFVSS this morning
Patient states she feels better, less pain and swelling to the right jaw region
Denies any new complaints. States she feels well enough to go home
Objective Data
-
Labs:
Laboratory Results
12/22/24
06:41
WBC 6.5
Hgb 11.4 L
Hct 33.9 L
Plt Count 267
Sodium 139
Potassium 4.3
Chloride 108 H
Carbon Dioxide 23
BUN 7
Creatinine 0.6
Glucose 105 H
Calcium 8.8
Total Bilirubin 0.7
AST 25
ALT 39 H
Alkaline Phosphatase 82
Vital Signs:
Vital Signs
Temp Pulse Resp BP Pulse Ox
99.3 F 72 18 147/73 99
12/22/24 07:23 12/22/24 07:23 12/22/24 07:23 12/22/24 07:23 12/22/24 07:23
I&O
12/21/24 12/22/24 12/23/24
06:59 06:59 06:59
Intake Total 4110 / 4110 1679
Balance 4110 / 4110 1679
Review of Systems
-
History Source: Patient
All other systems: Reviewed and negative
Physical Exam
-
General: Well Developed, No Apparent Distress and Morbidly Obese
HEENT: Normocephalic, Atraumatic and Moist Mucous Membranes
Respiratory: Clear to Auscultation, Non Labored Respirations and Other (No stridor)
Cardiac: Regular Rhythm and S1/S2; Negative Murmur, Rub or Gallop
GI: Soft, Nontender, Nondistended and Normal Bowel Sounds
Musculoskeletal: No Clubbing, No Cyanosis and No Edema
Skin: Warm, Dry and Other (Erythematous patch of right jawline with crusting, mild firmness underlying)
Neuro: AO x 3 and Nonfocal/Grossly Intact
Psych: Calm
Data Reviewed
-
Labs: Labs Reviewed by me and Discussed with Patient
--- NOTE | 2024-12-22 12:06 | CM ---
Home today no needs
Plan; Home, no needs.
[2024-12-22 12:55] VITALS: BP 144/86
--- NOTE | 2024-12-22 15:52 | W.DCSUMMARY ---
Discharge Summary
Discharge Data
Date of Admission: 12/19/24
Date of Discharge: 12/22/24
Total time spent discharging patient (in min): 33
-
Pending Results: No
Hospital Course
Discharging Physician : Wilbert Beasley DO
Disposition : Home
Principal Discharge diagnosis :
Right-sided facial abscess
Right mandibular cellulitis
Chronic Discharge diagnosis :
Seasonal allergies
Morbid obesity
GERD
Hospital Course :
39-year-old female that presented with pain and swelling to the right mandibular jawline. Noted to have erythema and fluctuance suspicious for abscess, underwent drainage in the ED at time of arrival. Gram stain and culture of wound was negative.
MRSA screen negative. Was initially on IV antibiotics with vancomycin which was de-escalated to IV Unasyn while inpatient. Had clinical improvement with resolution of leukocytosis, improved swelling and erythema to the site. Was evaluated by
infectious disease team, transition to oral Augmentin on 12/22/2024 for 10 more days of antibiotics to complete 14 full days. Recommended outpatient follow-up with family doctor within 1 to 2 weeks of discharge from the hospital.
Important imaging findings :
Neck CT with IV contrast (12/19/2024)
FINDINGS: Enhanced brain parenchyma is unremarkable. There is mild mucosal thickening in the left maxillary sinus. The salivary glands are within normal limits. There is mild right submental lymphadenopathy just anterior to the right mandibular
gland seen best on image 50 series 201 and measuring 1.8 x 0.9 cm.
There is a small focal fluid collection with a thick enhancing wall and consistent with an abscess. This is in the subcutaneous tissues about the lateral right jaw. Collectively it measures 1.5 x 1.3 cm. The fluid component measures 0.5 x 0.3 cm.
There is mild surrounding increased density to the subcutaneous tissues suggesting inflammation. No additional focal fluid collections to suggest an abscess are noted. More inferiorly, there is increased density to the subcutaneous tissues
suggesting inflammation/cellulitis.
There is mild right cervical lymphadenopathy. The largest lymph node measures 1.7 x 0.9 cm.The thyroid gland is unremarkable. The imaged lungs are clear. No bony destruction is noted. The airway is unremarkable. Epiglottis is within normal limits.
There is mild reversal of the normal cervical spinal lordosis. This can be seen with muscle spasm. Prevertebral soft tissues are within normal limits.
Procedure findings : N/A
Discharge Plan
-
Patient Disposition: Home (Routine Discharge)
Discharge Diagnosis/Procedures: Facial abscess and cellulitis
Condition: Good
Diet: No restrictions
Activity: As tolerated
Additional Activity: Encourage 30 minutes of aerobic exercise daily (walking, biking, swimming)
Driving Restrictions: As prior to admission
Bathing Restrictions: OK to Shower
Blood Work: None
Others Tests: None
Activity Restrictions/Additional Instructions:
Follow-up with your family physician after discharge, should be seen in the office within 1 to 2 weeks of discharge from the hospital.
Instructions: Skin Abscess
Referrals:
Aicha Guzman DO [Family Provider] -
Additional Discharge Medication Instructions: Continue Augmentin 875-125 mg every 12 hours for 10 more days after discharge
Prescriptions:
New
amoxicillin-pot clavulanate 875-125 mg tablet
1 tab PO Q12H 10 Days Qty: 20 0RF
Continued
cetirizine 10 mg Tablet
10 mg PO DAILY
zinc sulfate 50 mg zinc (220 mg) Tablet
50 mg PO HS
famotidine 20 mg Tablet
20 mg PO DAILY
ascorbic acid (vitamin C) [Vitamin C] 500 mg Tablet
500 mg PO HS
ibuprofen [Advil] 200 mg Tablet
600 mg PO Q6HPRN PRN (Reason: mild pain/fever)
duloxetine 60 mg Capsule,Delayed Release(Dr/Ec)
60 mg PO DAILY
cholecalciferol (vitamin D3) [Vitamin D3] 25 mcg (1,000 unit) Tablet
25 mcg PO HS
Visbiome 112.5 billion cell Capsule
1 cap PO HS
inulin 2 gram Tablet,Chewable
4 g PO HS
magnesium oxide 400 mg magnesium Tablet
400 mg PO HS
Discontinued
clindamycin HCl 300 mg Capsule
300 mg PO TID
Discharge Orders:
Discharge Patient (As Directed); Ordered 12/22/24
Ordered By: Wilbert Beasley
Discharge Date and Time
Discharge Date/Time: 12/22/24 13:41
Print Language: AZERI
== END 2024-12-22 13:41 | disposition home or self-care (01) | DRG 603 ==
LOC: 4 WEST ACU 21:38
PROVIDERS: Hospitalist; Nurse Practitioner Family; ADMITTING PHYSICIAN Internal Medicine; ATTENDING PHYSICIAN Internal Medicine; CONSULT PHYSICIAN Internal Medicine Infectious Disease; EMERGENCY PHYSICIAN Student in an Organized Health Care Education/Training Program; FAMILY PHYSICIAN Family Medicine
PROC: 0J910ZZ Drainage of Face Subcutaneous Tissue and Fascia, Open Approach (ICD-10-PCS; 2024-12-19)
DX: L02.01 Cutaneous abscess of face (principal); L03.211 Cellulitis of face; Z68.42 Body mass index [BMI] 45.0-49.9, adult; F41.9 Anxiety disorder, unspecified; R13.10 Dysphagia, unspecified; E66.01 Morbid (severe) obesity due to excess calories; E66.813 Obesity, class 3; J30.2 Other seasonal allergic rhinitis; R59.0 Localized enlarged lymph nodes; F32.A Depression, unspecified; K21.9 Gastro-esophageal reflux disease without esophagitis; Z91.011 Allergy to milk products; Z91.018 Allergy to other foods
CPT/HCPCS: 10060; 70491; 80048; 80053; 83605; 84703; 85025; 85027; 87070; 87205; 96365; 96375; 96376; 99285; Q9967